=== PATIENT | male | born 2005 | race Caucasian/White ===

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

== ENCOUNTER 2025-01-19 14:21 | Outpatient (CLI) | payer BC, SELFPAY | END 2025-01-19 14:22 | disposition home or self-care (01) | PROVIDERS: PCP Pediatrics; Visit Provider Chiropractor Rehabilitation | DX: M54.50 Low back pain, unspecified (principal) | CPT/HCPCS: 72100 ==

== ENCOUNTER 2025-02-04 07:11 | Outpatient (CLI) | payer BC, SELFPAY ==
--- NOTE | ~2025-02-04 | MR_ITS ---
MRI of the lumbar spine Clinical History: Back pain Technique: Axial T2-weighted images, and sagittal T1-weighted, T2-weighted, and and T2 fat-sat images were acquired. Findings: There is no fracture or subluxation of the lumbar spine. Vertebral bodies maintain normal h eight and alignment. No bone marrow signal abnormality seen. At L1-L2, L2-L3, L3-L4, L4-L5, there is no disc bulge or herniation. There is mild to moderate facet joint degenerative changes at these levels, worst at L4-L5. No spinal canal stenosis at any level. Th ere is mild bilateral neural foraminal narrowing at L4-L5. Remaining neural foramen at these levels a re preserved. At L5-S1, degenerative disc narrowing with central disc protrusion/herniation, which mildly effaces t he ventral thecal sac. No alex canal stenosis. There is mild to moderate bilateral neural foraminal narrowing. Paravertebral soft tissues are unremarkable. Impression: Central disc protrusion/herniation at L5-S1, with mild effacement of the ventral sac, but no alex ca nal stenosis. Mild to moderate bilateral neural foraminal narrowing at this level. Reviewed, dictated and finalized at location . Impression: Central disc protrusion/herniation at L5-S1, with mild effacement of the ventra l sac, but no alex canal stenosis. Mild to moderate bilateral neural foraminal narrowing at this level.
== END 2025-02-04 07:12 | disposition home or self-care (01) ==
LOC: MICIMG 07:14
PROVIDERS: Visit Provider Chiropractor Rehabilitation
DX: M51.27 Other intervertebral disc displacement, lumbosacral region (principal); G95.29 Other cord compression; M48.00 Spinal stenosis, site unspecified
CPT/HCPCS: 72148